=== PATIENT | male | born 1960 | race Caucasian/White ===

== ENCOUNTER 2023-04-13 17:13 | Emergency (ER) | payer BC ==
[~2023-04-13] VITALS: Ht 175.3 cm; Wt 109.1 kg
[~2023-04-13 17:13] MED LIST: ASPI-1265 PO; ATOR20TA PO; METO50TA16 PO; TICA90TA2 PO
[2023-04-13 17:34] VITALS: BP 142/80
[2023-04-13] MEDS ORDERED: LIDOcaine 1% 30ml preserv. free vial IJ ONE (18:10)
[2023-04-13] MEDS ORDERED: TETanus/Pertussis (Acell)/Diphther VAC/PF (Tdap-Adult) 0.5ml syringe IMVAC ONE (18:10)
[2023-04-13] MEDS ORDERED: bacitracin 15gm ointment TP ONE (18:10)
== END 2023-04-13 19:07 | disposition home or self-care (01) ==
LOC: ER 17:13
DX: S61.012A Laceration without foreign body of left thumb without damage to nail, initial encounter (principal); W45.8XXA Other foreign body or object entering through skin, initial encounter; Y93.89 Activity, other specified; Y92.89 Other specified places as the place of occurrence of the external cause; Y99.8 Other external cause status
CPT/HCPCS: 12001; 90471; 90715; 99283; J3490; A6449